=== PATIENT | female | born 1995 | race Caucasian/White ===

== ENCOUNTER 2017-10-01 06:41 | Day surgery (SDC) | payer OTHER ==
[~2017-10-01 06:41] MED LIST: CEFAZOLIN 2 GM/50 ML (PMX) 50 ML IVPB; SOD CHLORIDE 0.9% 1,000 ML IV
[2017-10-01] MEDS ORDERED: DEXAMETHASONE 4 MG/ML 1 ML INJ (07:00)
[2017-10-01] MEDS ORDERED: ONDANSETRON 4 MG INJ (07:00)
[2017-10-01] MEDS ORDERED: FENTAnyl 50 MCG/ML VIAL (08:21)
[2017-10-01] MEDS ORDERED: PROPOFOL 20 ML (08:22)
[2017-10-01] MEDS ORDERED: MIDAZOLAM 1 MG/ML 2 ML INJ (08:22)
[2017-10-01] MEDS ORDERED: SUCCINYLCHOLINE CHLORIDE 100 MG/5 ML SYG IV (08:23)
[2017-10-01] MEDS ORDERED: METOCLOPRAMIDE 10 MG INJ (08:23)
[2017-10-01] MEDS ORDERED: ROCURONIUM 50 MG INJ (08:23)
[2017-10-01] MEDS ORDERED: LIDOCAINE 2% (SDV) 5 ML INJ (08:23)
[2017-10-01] MEDS ORDERED: SUGAMMADEX SODIUM 200 MG/2 ML VIAL IV (08:25)
[2017-10-01] MEDS ORDERED: CEFAZOLIN 1 GM INJ (08:26)
[2017-10-01] MEDS ORDERED: ROPIVACAINE 0.5 % 30 ML VIAL (09:29)
[2017-10-01] MEDS ORDERED: PROVENTIL HFA 6.7GM INHALER (10:54)
[2017-10-01] MEDS: BUPIVACAINE 0.25% (MPF) 30 ML INJ (12:05)
[2017-10-01] MEDS ORDERED: ACETAMINOPHEN 1000MG/100ML IV 100 ML (12:18)
[2017-10-01] MEDS ORDERED: MEPERIDINE 25 MG INJ (12:41)
[2017-10-01] MEDS: MEPERIDINE 25 MG INJ IV (12:53)
[2017-10-01] MEDS ORDERED: IPRATROPIUM (NEB) 0.5 MG/2.5 ML AMP HHN (13:00)
[2017-10-01] MEDS ORDERED: ONDANSETRON 4 MG INJ IV (13:00)
[2017-10-01] MEDS ORDERED: FENTAnyl 50 MCG/ML VIAL IV (13:00)
[2017-10-01] MEDS ORDERED: HYDROmorphONE 1 MG/5 ML IV SYRINGE IV (13:00)
[2017-10-01] MEDS ORDERED: DIPHENHYDRAMINE 50 MG INJ IV (13:00)
[2017-10-01] MEDS: FENTAnyl 50 MCG/ML VIAL IV (13:23)
[2017-10-01] MEDS: HYDROmorphONE 1 MG/5 ML IV SYRINGE IV (13:23)
[2017-10-01] MEDS: HYDROCODONE/APAP (5/325) TAB PO (14:07)
== END 2017-10-01 14:42 | disposition home or self-care (01) ==
LOC: SDS 06:41
DX: K81.1 Chronic cholecystitis (principal); G47.30 Sleep apnea, unspecified
CPT/HCPCS: 47562; 88304